=== PATIENT | male | born 1950 | race Caucasian/White ===

== ENCOUNTER 2016-09-05 18:49 | Emergency (ER) | payer BC ==
[~2016-09-05] VITALS: Ht 170.2 cm; Wt 101.6 kg
[~2016-09-05 18:49] MED LIST: ASPEC325 PO; BENA40TA6 PO; CTP/1 PO; DICL1GEL12 TOP; FELO10TA PO; NARCO PO
[2016-09-05 18:59] VITALS: TEMP 36.7; Ht 170.2 cm; Wt 101.6 kg
[2016-09-05] MEDS ORDERED: HYDROCODONE/ACETAMOPHEN 5/325MG TAB PO STA (19:17)
[2016-09-05] MEDS ORDERED: LISINOPRIL 40 MG TAB PO STA (19:19)
[2016-09-05] MEDS ORDERED: CLONIDINE HCL 0.1 MG TAB PO STA (19:19)
[2016-09-05] MEDS ORDERED: FELODIPINE 5 MG TABCR PO STA (19:19)
--- NOTE | 2016-09-05 19:32 | EMERGENCY ROOM VISIT NOTE ---
History Report prepared by Josefina: Estela Mock Under the Supervision of: Dr. Ezekiel Ball M.D. First contact with patient: 19:09 Chief Complaint: HYPERTENSION Stated Complaint: SMASHED RIGHT THUMB, HB 200/45 COMING FROM MED EXP History of Present Illness The patient is a 65 year old male who presents to the Emergency Room with complaints of constant hypertension beginning [employer]. The patient shut his right thumb in the sliding door of his van today about 1 hour ago. He went to [facility] for evaluation of his thumb and had his blood pressure checked in triage. It was 200/120 and the patient was immediately sent to the ED for further evaluation. The patient has a history of hypertension and states that he did not take his medication today. He cannot remember if he took his medication yesterday either. The patient also reports dizziness. He denies abdominal pain. He has been stressed lately because his [id number] is dying. The patient takes [place] daily for chronic pain. Source of History: patient, spouse/significant other Onset: [employer] Position: other (global) Symptom Intensity: BP 200/120 Quality: other (hypert) Timing: constant Modifying Factors (Worsening): other (medication noncompliance) Associated Symptoms: No abdominal pain Note: Pt reports right thumb pain and dizziness. Review of Systems See HPI for pertinent positives & negatives. A total of 10 systems reviewed and were otherwise negative. Past Medical & Surgical Medical Problems: (1) Hypertension Family History Diabetes mellitus Heart disease Hypertension Social History Smoking Status: Never Smoker Smokeless Tobacco Use: No Alcohol Use: occasionally Marital Status: Housing Status: lives with significant other Occupation Status: employed Current/Historical Medications Scheduled Aspirin (Aspirin), 325 MG PO DAILY Benazepril Hcl (Lotensin), 40 MG PO QAM Felodipine (Plendil Er), 10 MG PO QAM Scheduled PRN Clonidine Hcl (Catapres), 0.1 MG PO UD PRN for PRN Diclofenac Sodium (Topical) (Voltaren 1% Top Gel), 1 APPL TOP DAILY PRN for Pain Hydrocodone/Acetaminophen ([place] 10/325 Tab), 1 TAB PO QID PRN for Pain Allergies Coded Allergies: Gabapentin (Unverified Allergy, Unknown, makes him goofy, 09/05/16) Venlafaxine (Unverified Allergy, Unknown, unknown, 09/05/16) Uncoded Allergies: CYMBALALTA (Allergy, Mild, DROWSY, 11/29/13) ANTIDEPRESSANTS (Adverse Reaction, Unknown, DROWSY, 06/13/15) Physical Exam Vital Signs Date Time Temp Pulse Resp B/P Pulse Ox O2 Delivery O2 Flow Rate FiO2 09/05/16 20:10 72 20 242/150 97 Room Air 09/05/16 20:08 97 Room Air 09/05/16 20:08 97 Room Air 09/05/16 20:03 71 09/05/16 18:59 36.7 76 20 208/123 95 Room Air Physical Exam GENERAL: Patient is a healthy-appearing well-nourished 65 year old male. HEAD: Normocephalic atraumatic EYES: Ocular movements intact pupils equal and react to light OROPHARYNX mucous membranes are moist no exudates present no erythema or edema present NECK: Supple no nuchal rigidity CHEST: Good equal expansion LUNGS: Clear and equal to auscultation CARDIAC: Normal S1 and S2 ABDOMEN: Soft nontender no guarding BACK: No CVA tenderness EXTREMITIES: No pain upon palpation normal muscle strength in all groups no clubbing cyanosis or edema. Bruised tip of the right thumb. NEURO: Patient is following commands is answering questions appropriately. Alert and oriented x3 Cranial Nerves 2-12 grossly intact Medical Decision & Procedures ER Provider Diagnostic Interpretation: Radiology results as stated below per my review and radiologist interpretation: CHEST ONE VIEW PORTABLE CLINICAL HISTORY: severe hypertension chest pain COMPARISON STUDY: 06/23/2012 FINDINGS: The bones soft tissues and hemidiaphragms are normal. The cardiomediastinal silhouette is normal. The lungs are clear. The pulmonary vasculature is normal. IMPRESSION: Negative chest. Electronically signed by: Vinicio Allen M.D. 09/05/2016 7:45 PM Dictated Date/Time: 09/05/2016 7:45 PM RIGHT FINGER(S) MIN 2 VIEWS ROUTINE CLINICAL HISTORY: Pt slammed rt thumb in car door Right trauma. Pain. COMPARISON: None. DISCUSSION: Subtle incomplete cortical fracture base proximal phalanx right thumb. No additional acute bony abnormality. Mild soft tissue edema. Mild soft tissue edema IMPRESSION: Small incomplete cortical fracture dorsal aspect base proximal phalanx right fifth finger Electronically signed by: Vinicio Allen M.D. 09/05/2016 7:47 PM Dictated Date/Time: 09/05/2016 7:[address] NON[address]AST CT DOSE: 712.55 mGy.cm HISTORY: Hypertension Pt c/o HTN TECHNIQUE: Multiaxial CT images of the head were performed without the use of intravenous contrast. Comparison: 10/22/2009 Findings: The paranasal sinuses and mastoid air cells are clear. The calvarium and skull base are intact. The ventricles and sulci are within normal limits. There is no mass, hematoma, midline shift, or acute infarct. Impression: No acute intracranial abnormality. Electronically signed by: Vinicio Allen M.D. 09/05/2016 8:31 PM Dictated Date/Time: 09/05/2016 8:31 PM Laboratory Results 09/05/16 19:30 Red Blood Count 5.05, Mean Corpuscular Volume 85.9, Mean Corpuscular Hemoglobin 29.7, Mean Corpuscular Hemoglobin Concent 34.6, Mean Platelet Volume 9.7, Neutrophils (%) (Auto) 63.5, Lymphocytes (%) (Auto) 24.5, Monocytes (%) (Auto) 7.6, Eosinophils (%) (Auto) 3.5, Basophils (%) (Auto) 0.5, Neutrophils # (Auto) 6.27, Lymphocytes # (Auto) 2.42, Monocytes # (Auto) 0.75, Eosinophils # (Auto) 0.35, Basophils # (Auto) 0.05 09/05/16 19:30 Test 09/05/16 19:30 White Blood Count 9.88 K/uL (4.8-10.8) Red Blood Count 5.05 M/uL (4.7-6.1) Hemoglobin 15.0 g/dL (14.0-18.0) Hematocrit 43.4 % (42-52) Mean Corpuscular Volume 85.9 fL (80-100) Mean Corpuscular Hemoglobin 29.7 pg (25-34) Mean Corpuscular Hemoglobin Concent 34.6 g/dl (32-36) Platelet Count 238 K/uL (130-400) Mean Platelet Volume 9.7 fL (7.4-10.4) Neutrophils (%) (Auto) 63.5 % Lymphocytes (%) (Auto) 24.5 % Monocytes (%) (Auto) 7.6 % Eosinophils (%) (Auto) 3.5 % Basophils (%) (Auto) 0.5 % Neutrophils # (Auto) 6.27 K/uL (1.4-6.5) Lymphocytes # (Auto) 2.42 K/uL (1.2-3.4) Monocytes # (Auto) 0.75 K/uL (0.11-0.59) Eosinophils # (Auto) 0.35 K/uL (0-0.5) Basophils # (Auto) 0.05 K/uL (0-0.2) RDW Standard Deviation 42.1 fL (36.4-46.3) RDW Coefficient of Variation 13.5 % (11.5-14.5) Immature Granulocyte % (Auto) 0.4 % Immature Granulocyte # (Auto) 0.04 K/uL (0.00-0.02) Prothrombin Time 10.7 SECONDS (9.0-12.0) Prothromb Time International Ratio 1.0 (0.9-1.1) Activated Partial Thromboplast Time 24.3 SECONDS (21.0-31.0) Partial Thromboplastin Ratio 0.9 Anion Gap 8.0 mmol/L (3-11) Est Creatinine Clear Calc Drug Dose 84.5 ml/min Estimated GFR () 92.2 Estimated GFR (Non- 79.6 BUN/Creatinine Ratio 19.1 (10-20) Calcium Level 8.6 mg/dl (8.5-10.1) Total Bilirubin 0.3 mg/dl (0.2-1) Direct Bilirubin < 0.1 mg/dl (0-0.2) Aspartate Amino Transf (AST/SGOT) 17 U/L (15-37) Alanine Aminotransferase (ALT/SGPT) 25 U/L (12-78) Alkaline Phosphatase 79 U/L (45-117) Total Protein 6.7 gm/dl (6.4-8.2) Albumin 3.6 gm/dl (3.4-5.0) Lipase 182 U/L (73-393) Thyroid Stimulating Hormone (TSH) 0.843 uIu/ml (0.300-4.500) Labs reviewed by ED physician. Medications Administered Medications (Trade) Dose Ordered Sig/Kavya Route Start Time Stop Time Status Last Admin Dose Admin Acetaminophen/ Hydrocodone Bitart ([place] 5/325 Tab) 2 tab NOW STAT PO 09/05/16 19:17 09/05/16 19:19 DC 09/05/16 20:00 2 TAB Felodipine (Plendil Tabcr) 5 mg NOW STAT PO 09/05/16 19:19 09/05/16 19:23 DC 09/05/16 20:01 5 MG Lisinopril (Zestril Tab) 40 mg NOW STAT PO 09/05/16 19:19 09/05/16 19:23 DC 09/05/16 20:01 40 MG Clonidine HCl (Catapres Tab) 0.1 mg NOW STAT PO 09/05/16 19:19 09/05/16 19:23 DC 09/05/16 20:00 0.1 MG ECG Indication: other (hyptertension) Rate (beats per minute): 77 Rhythm: normal sinus Findings: no acute ischemic change, no ectopy ED Course 1908: Past medical records reviewed. The patient was evaluated in room B10. A complete history and physical examination was performed. 1916: [place] 5/325 2 tab PO 1918: Catapres tab 0.1 mg PO, Lisinopril 40 mg PO, Felodipine 5 mg PO 2041: I reassessed the patient at this time. He is feeling better and resting comfortably. I discussed the results and treatment plan with the patient. I answered all pertaining questions that he had. He expressed understanding and verbalized agreement. The patient will be discharged home. Medical Decision Differential diagnosis: Etiologies such as benign hypertension, hypertensive emergency, cardiovascular pathology, pheochromocytoma, electrolyte abnormality, renal disease, endorgan damage, as well as others were entertained. This is a 65-year-old male who presents emergency department complaining of smashing his finger in a car door today. The patient went to [facility] to have this evaluated however when they saw how high his blood pressure was the patient was sent to the emergency department. I believe there are several reasons this is including the fact that the patient has not taking his blood pressure medication for the past 2 days as well as the fact that the patient is complaining of a injury to his thumb. X-rays consistent with a fracture to the thumb therefore the patient was placed in a splint here. He was given [place] for the pain. In addition the patient was also given his home blood pressure medications. I believe based on the fact that the patient has normal laboratory work along with normal CAT scan of the head that he can be safely discharged home for follow-up with his primary care physician for his blood pressure. In addition he will follow-up with orthopedics for his thumb. Patient and are in agreement with treatment plan. Impression Primary Impression: Hypertension Additional Impression: Thumb fracture Scribe Attestation The scribe's documentation has been prepared under my direction and personally reviewed by me in its entirety. I confirm that the note above accurately reflects all work, treatment, procedures, and medical decision making performed by me. Departure Information Dispostion Home / Self-Care Referrals Gokul Addison M.D. (PCP) Zack Qureshi M.D. Forms HOME CARE DOCUMENTATION FORM, IMPORTANT VISIT INFORMATION, WORK / SCHOOL INSTRUCTIONS Patient Instructions ED Fx Thumb, ED Hypertension Conf Out Of Control, Hypertension Control, Hypertension Dc, My [facility] Additional Instructions Need follow up with Dr Addison's office Need follow up with Dr Qureshi's office You have been examined and treated today on an emergency basis only. This is not a substitute for, or an effort to provide, complete comprehensive medical care. It is impossible to recognize and treat all injuries or illnesses in a single emergency department visit. It is therefore important that you follow up closely with Dr Addison. Call as soon as possible for an appointment. Thank you for your time and consideration. I look forward to speaking with you again soon. Please don't hesitate to call us if you have any questions. Problem Qualifiers Primary Impression: Hypertension Hypertension type: essential hypertension Qualified Codes: I10 - Essential ( primary) hypertension Additional Impression: Thumb fracture Encounter type: initial encounter Fracture type: closed Phalanx: distal Fracture alignment: nondisplaced Laterality: right Qualified Codes: S62.524A - Nondisplaced fracture of distal phalanx of right thumb, initial encounter for closed fracture
[2016-09-05 19:42] LABS: BASO % 0.5 %; BASO ABS # 0.05 K/uL (0-0.2); COMPLETE YES; EOS % 3.5 %; HEMATOCRIT 43.4 % (42-52); IG% 0.4 %; LYMPH % 24.5 %; LYMPH ABS # 2.42 K/uL (1.2-3.4); MEAN CELL VOLUME 85.9 fL (80-100); MEAN CORPUSCULAR HEMOGLOBIN 29.7 pg (25-34); MEAN CORPUSCULAR HGB CONC 34.6 g/dl (32-36); MEAN PLATELET VOLUME 9.7 fL (7.4-10.4); MONO % 7.6 %; NEUT % 63.5 %; PLATELET COUNT 238 K/uL (130-400); RED BLOOD COUNT 5.05 M/uL (4.7-6.1); WHITE BLOOD COUNT 9.88 K/uL (4.8-10.8)
--- NOTE | 2016-09-05 19:47 | DIAGNOSTIC IMAGING REPORT ---
CHEST ONE VIEW PORTABLE CLINICAL HISTORY: severe hypertension chest pain COMPARISON STUDY: 06/23/2012 FINDINGS: The bones soft tissues and hemidiaphragms are normal. The cardiomediastinal silhouette is normal. The lungs are clear. The pulmonary vasculature is normal. IMPRESSION: Negative chest. Electronically signed by: Vinicio Allen M.D. 09/05/2016 7:45 PM Dictated Date/Time: 09/05/2016 7:45 PM
--- NOTE | 2016-09-05 19:48 | DIAGNOSTIC IMAGING REPORT ---
RIGHT FINGER(S) MIN 2 VIEWS ROUTINE CLINICAL HISTORY: Pt slammed rt thumb in car door Right trauma. Pain. COMPARISON: None. DISCUSSION: Subtle incomplete cortical fracture base proximal phalanx right thumb. No additional acute bony abnormality. Mild soft tissue edema. Mild soft tissue edema IMPRESSION: Small incomplete cortical fracture dorsal aspect base proximal phalanx right fifth finger Electronically signed by: Vinicio Allen M.D. 09/05/2016 7:47 PM Dictated Date/Time: 09/05/2016 7:46 PM
[2016-09-05 19:52] LABS: PARTIAL THROMBOPLASTIN RATIO 0.9; PROTHROMBIN TIME (PATIENT) 10.7 SECONDS (9.0-12.0)
[2016-09-05 19:58] LABS: ALT/SGPT 25 U/L (12-78); BLOOD UREA NITROGEN 19 mg/dl (7-18); BUN/CREATININE RATIO 19.1 (10-20); CALCIUM 8.6 mg/dl (8.5-10.1); CARBON DIOXIDE 28 mmol/L (21-32); CHLORIDE 104 mmol/L (98-107); CREATININE 0.99 mg/dl (0.60-1.40); GLUCOSE 105 mg/dl (70-99); POTASSIUM 3.8 mmol/L (3.5-5.1); SODIUM 140 mmol/L (136-145)
[2016-09-05 20:08] VITALS: O2SAT 97
[2016-09-05 20:09] LABS: ALKALINE PHOSPHATASE 79 U/L (45-117); AST/SGOT 17 U/L (15-37); THYROID STIMULATING HORMONE 0.843 uIu/ml (0.300-4.500)
[2016-09-05] MEDS ORDERED: ASPI325T45 PO (20:11)
[2016-09-05] MEDS ORDERED: HYDR-4383 PO (20:11)
--- NOTE | 2016-09-05 20:33 | DIAGNOSTIC IMAGING REPORT ---
HEAD CT NONCONTRAST CT DOSE: 712.55 mGy.cm HISTORY: Hypertension Pt c/o HTN TECHNIQUE: Multiaxial CT images of the head were performed without the use of intravenous contrast. Comparison: 10/22/2009 Findings: The paranasal sinuses and mastoid air cells are clear. The calvarium and skull base are intact. The ventricles and sulci are within normal limits. There is no mass, hematoma, midline shift, or acute infarct. Impression: No acute intracranial abnormality. Electronically signed by: Vinicio Allen M.D. 09/05/2016 8:31 PM Dictated Date/Time: 09/05/2016 8:31 PM
[2016-09-05 21:19] VITALS: BP 170/115; PULSE 68; O2SAT 96
[2016-09-05 21:26] LABS: URINE APPEARANCE CLEAR (CLEAR); URINE BILIRUBIN NEG (NEG); URINE COLOR YELLOW; URINE NITRITE NEG (NEG); URINE SPECIFIC GRAVITY 1.009 (1.000-1.030); UROBILINOGEN NEG (NEG)
[2016-09-05 21:33] LABS: MANUAL MICROSCOPIC REQUIRED? NO; REVIEW REQ? NO
== END 2016-09-05 21:31 | disposition home or self-care (01) ==
LOC: C.EDB 18:50
DX: I10 Essential (primary) hypertension (principal); S62.524A Nondisplaced fracture of distal phalanx of right thumb, initial encounter for closed fracture; R42 Dizziness and giddiness; G89.29 Other chronic pain; Z79.82 Long term (current) use of aspirin; Z79.899 Other long term (current) drug therapy; Z88.8 Allergy status to other drugs, medicaments and biological substances; Z82.49 Family history of ischemic heart disease and other diseases of the circulatory system; Z83.3 Family history of diabetes mellitus; W23.0XXA Caught, crushed, jammed, or pinched between moving objects, initial encounter

== ENCOUNTER → 2017-01-17 | Outpatient (CLI) | payer BC ==
[~2017-01-17] MED LIST changes: -ASPEC325 PO; +ASPI325T45 PO; +HYDR-4383 PO; -NARCO PO
== END | disposition home or self-care (01) ==
LOC: C.LABSPEC 13:20
PROVIDERS: ATTEND Dermatology
DX: L98.9 Disorder of the skin and subcutaneous tissue, unspecified (principal)

== ENCOUNTER → 2017-02-03 | Outpatient (CLI) | payer BC ==
[2017-02-03 17:26] LABS: BASO % 0.4 %; BASO ABS # 0.04 K/uL (0-0.2); COMPLETE YES; EOS % 2.3 %; HEMATOCRIT 44.1 % (42-52); IG% 0.3 %; LYMPH % 26.9 %; LYMPH ABS # 2.62 K/uL (1.2-3.4); MEAN CELL VOLUME 87.5 fL (80-100); MEAN CORPUSCULAR HGB CONC 33.1 g/dl (32-36); MEAN PLATELET VOLUME 9.8 fL (7.4-10.4); MONO % 6.1 %; PLATELET COUNT 276 K/uL (130-400); RED BLOOD COUNT 5.04 M/uL (4.7-6.1); WHITE BLOOD COUNT 9.74 K/uL (4.8-10.8)
[2017-02-03 17:41] LABS: ESTIMATED AVERAGE GLUCOSE 117 mg/dl; HA1C FLAG Normal (Normal)
[2017-02-03 17:49] LABS: ALT/SGPT 26 U/L (12-78); BLOOD UREA NITROGEN 22 mg/dl (7-18); CALCIUM 8.9 mg/dl (8.5-10.1); CARBON DIOXIDE 30 mmol/L (21-32); CHLORIDE 108 mmol/L (98-107); GLUCOSE 115 mg/dl (70-99); POTASSIUM 4.2 mmol/L (3.5-5.1); SODIUM 143 mmol/L (136-145)
[2017-02-03 17:59] LABS: AST/SGOT 16 U/L (15-37); THYROID STIMULATING HORMONE 0.914 uIu/ml (0.300-4.500)
== END | disposition home or self-care (01) ==
LOC: C.LAB1850 16:40
PROVIDERS: ATTEND Internal Medicine
DX: R73.03 Prediabetes (principal); G62.9 Polyneuropathy, unspecified

== ENCOUNTER → 2017-02-15 | Outpatient (CLI) | payer BC | END | disposition home or self-care (01) | LOC: C.PATHSPEC 17:17 | PROVIDERS: ATTEND Dermatology | DX: L57.0 Actinic keratosis (principal) ==

== ENCOUNTER → 2017-08-16 | Outpatient (CLI) | payer BC ==
[2017-08-16 12:12] LABS: HEMOGLOBIN 15.1 g/dL (14.0-18.0); MEAN CELL VOLUME 86.4 fL (80-100); MEAN CORPUSCULAR HEMOGLOBIN 29.7 pg (25-34); MEAN CORPUSCULAR HGB CONC 34.3 g/dl (32-36); MEAN PLATELET VOLUME 9.3 fL (7.4-10.4); PLATELET COUNT 256 K/uL (130-400); RED CELL DISTRIBUTION WIDTH CV 13.7 % (11.5-14.5); RED CELL DISTRIBUTION WIDTH SD 43.2 fL (36.4-46.3); WHITE BLOOD COUNT 8.27 K/uL (4.8-10.8)
[2017-08-16 12:31] LABS: ALBUMIN 3.7 gm/dl (3.4-5.0); ALT/SGPT 27 U/L (12-78); AST/SGOT 14 U/L (15-37); BLOOD UREA NITROGEN 18 mg/dl (7-18); CALCIUM 8.8 mg/dl (8.5-10.1); CARBON DIOXIDE 29 mmol/L (21-32); CREATININE 1.09 mg/dl (0.60-1.40); GLUCOSE 108 mg/dl (70-99); POTASSIUM 4.1 mmol/L (3.5-5.1); SODIUM 138 mmol/L (136-145)
[2017-08-16 12:36] LABS: ALKALINE PHOSPHATASE 90 U/L (45-117); CHOLESTEROL 174 mg/dl (0-200); HEMOGLOBIN A1C 5.8 % (4.5-5.6); LDL CHOLESTEROL CALCULATED 100 mg/dl; TOTAL PROTEIN 7.2 gm/dl (6.4-8.2)
== END | disposition home or self-care (01) ==
LOC: C.LAB1850 10:36
PROVIDERS: ATTEND Internal Medicine
DX: R73.03 Prediabetes (principal); G62.9 Polyneuropathy, unspecified; I10 Essential (primary) hypertension; F52.8 Other sexual dysfunction not due to a substance or known physiological condition

== ENCOUNTER → 2017-11-16 | Outpatient (CLI) | payer BC ==
[~2017-11-16] MED LIST changes: +ASPECOTC PO; -ASPI325T45 PO
--- NOTE | 2017-11-16 15:55 | DIAGNOSTIC IMAGING REPORT ---
R KNEE 3 VIEWS HISTORY: 67 years-old Male M25.561 Right knee [id number] acute right knee pain COMPARISON: None available TECHNIQUE: 3 views of the right knee FINDINGS: There is mild medial and patellofemoral compartment joint space narrowing with minimal marginal spurring. Mild spurring about the tibial spines. No acute fracture, dislocation or joint effusion. Mild soft tissue prominence circumferentially about the knee with 7 mm dystrophic calcification adjacent to the medial femoral condyle within the expected region of the proximal MCL fibers. IMPRESSION: 1. Mild degenerative changes as above without acute fracture or dislocation. 2. 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 The above report was generated using voice recognition software. It may contain grammatical, syntax or spelling errors. Electronically signed by: Trent Salmon M.D. 11/16/2017 3:54 PM Dictated Date/Time: 11/16/2017 3:52 PM
== END | disposition home or self-care (01) ==
LOC: C.RAD1850 15:37
PROVIDERS: ATTEND Physician Assistant
DX: M25.561 Pain in right knee (principal); M76.41 Tibial collateral bursitis [Pellegrini-Stieda], right leg